=== PATIENT | female | born 1955 | race Caucasian/White ===

== ENCOUNTER 2018-06-08 12:18 | Emergency (ER) | payer OTHER ==
[~2018-06-08] VITALS: Ht 167.6 cm; Wt 72.7 kg
[2018-06-08 12:36] VITALS: Ht 167.6 cm; Wt 72.7 kg
--- NOTE | 2018-06-08 13:00 | ERD ---
ER Documentation Chief Complaint Chief Complaint DIZZINESS HPI The patient is a 63-year-old female, presenting to the ER because of i ntermittent dizziness, right ear pain, right-sided headache for 5 days, seen by a physician who is treating her with antibiotic amoxicillin for right ear infection, last visit was 5 and 2 days ago. She denies syncope, near syncope, neck pain, chest pain, dyspnea, abdominal pain, vomiting, dysuria, diarrhea. She does not smoke/drink Past medical history: Hypertension, hypothyroidism, history of lymphoma treated with chemotherapy Past surgical history: Corneal transplant, partial thyroidectomy ROS All systems reviewed and are negative except as per history of present illness. Medications Home Meds Active Scripts Amoxicillin/Potassium Clav (Amox-Clav 875-125 mg Tablet) 875-125 mg Tab, 1 TAB PO BID for 7 Days, #14 TAB Prov:AMBER ANDERSON MD 06/08/18 Meclizine Hcl* (Antivert*) 12.5 Mg Tab, 25 MG PO Q6H PRN for DIZZINESS, #20 TAB Prov:AMBER ANDERSON MD 06/08/18 Reported Medications Ofloxacin Otic (Ofloxacin Otic) 5 Ml Drops, 10 DROP BOTH EARS DAILY for 7 Days, #1 BOTTLE 06/08/18 Loratadine* (Claritin*) 10 Mg Capsule, 10 MG PO DAILY, CAP 06/08/18 Meclizine Hcl* (Meclizine Hcl*) 25 Mg Tablet, 25 MG PO Q8H PRN for DIZZINESS, TAB 06/08/18 Clopidogrel Bisulfate (Clopidogrel) 75 Mg Tablet, 75 MG PO DAILY, #30 TAB 06/08/18 Levothyroxine Sodium* (Levothyroxine Sodium*) 50 Mcg Tablet, 50 MCG PO BEFORE BREAKFAST, #30 TAB 06/08/18 Lisinopril/Hydrochlorothiazide (Lisinopril-Hctz 10-12.5 mg Tab) 1 Each Tablet, 1 EACH PO DAILY, TAB 06/08/18 Amoxicillin* (Amoxicillin*) 500 Mg Cap, 500 MG PO Q8, #30 CAP 06/08/18 Ibuprofen* (Ibuprofen*) 200 Mg Capsule, 200 MG PO QID PRN for PAIN, CAP 06/08/18 Discontinued Reported Medications Clopidogrel Bisulfate (Clopidogrel) 75 Mg Tablet, 75 MG PO DAILY, #30 TAB 06/08/18 Allergies Allergies: Coded Allergies: No Known Allergy (Unverified , 06/08/18) Physical Exam Vitals Vital Signs Date Temp Pulse Resp B/P (MAP) Pulse Ox O2 O2 Flow FiO2 Time Delivery Rate 06/08/18 70 17 120/77 100 Room Air 16:14 (91) 06/08/18 75 17 109/78 100 Room Air 13:14 (88) 06/08/18 98.3 82 18 127/82 99 12:36 (97) Physical Exam Const: No acute distress. Head: Atraumatic. Eyes: Normal Conjunctiva. ENT: Normal External Ears, Nose and Mouth. R tympanic membrane is erythematous Neck: Full range of motion. No meningismus. Resp: Clear to auscultation bilaterally. Cardio: Regular rate and rhythm. Abd: Soft, non distended, normal bowel sounds, non tender. Skin: No petechiae or rashes. Back: No midline or flank tenderness. Ext: No cyanosis, or edema. Neur: Awake and alert. No focal deficit Psych: Anxious. Result Diagram: 06/08/18 1407 06/08/18 1407 Results 24 hrs Laboratory Tests Test 06/08/18 14:07 White Blood Count 11.5 10^3/ul Red Blood Count 3.78 10^6/ul Hemoglobin 11.0 g/dl Hematocrit 33.1 % Mean Corpuscular Volume 87.6 fl Mean Corpuscular Hemoglobin 29.1 pg Mean Corpuscular Hemoglobin Concent 33.2 g/dl Red Cell Distribution Width 13.2 % Platelet Count 190 10^3/UL Mean Platelet Volume 11.0 fl Immature Granulocytes % 0.300 % Neutrophils % 45.8 % Lymphocytes % 43.0 % Monocytes % 10.5 % Eosinophils % 0.1 % Basophils % 0.3 % Nucleated Red Blood Cells % 0.0 /100WBC Immature Granulocytes # 0.040 10^3/ul Neutrophils # 5.3 10^3/ul Lymphocytes # 4.9 10^3/ul Monocytes # 1.2 10^3/ul Eosinophils # 0.0 10^3/ul Basophils # 0.0 10^3/ul Nucleated Red Blood Cells # 0.0 10^3/ul Prothrombin Time 12.4 Sec Prothrombin Time Ratio 1.0 INR International Normalized Ratio 0.91 Activated Partial Thromboplast Time 25.4 Sec Sodium Level 140 mmol/L Potassium Level 4.4 mmol/L Chloride Level 103 mmol/L Carbon Dioxide Level 24 mmol/L Anion Gap 13 Blood Urea Nitrogen 29 mg/dl Creatinine 1.29 mg/dl Est Glomerular Filtrat Rate mL/min 42 mL/min Glucose Level 77 mg/dl Calcium Level 9.2 mg/dl Troponin I < 0.012 ng/ml Current Medications Medications Dose Sig/Myah Start Time Status Last (Trade) Ordered Route PRN Stop Time Admin Dose Reason Admin Meclizine 25 mg ONCE ONCE 06/08/18 DC 06/08/18 HCl PO 14:30 06/08/18 15:47 (Antivert) 14:31 Procedures/[place] [id number] Radiology Main Line: [phone] DIAGNOSTIC IMAGING REPORT Patient: DELORES PIMENTEL : 1955 Age: 63 Sex: F MR #: [id number] DOS: 06/08/18 1321 Ordering MD: AMBER ANDERSON MD Location: E/R Room/Bed: PROCEDURE: CT Brain without contrast. CLINICAL INDICATION: Syncope. TECHNIQUE: A CT of the brain without contrast was performed utilizing axial sections from the skull base through the vertex. One or more the following does reduction techniques were utilized: Automated exposure control, adjustment of the mA/ or kV according to patient's size, or use of iterative reconstruction technique. Total exam CTDIvol is 39.25 MGy and DLP is 554.95 mGy-cm. DICOM images are available. COMPARISON: None available. FINDINGS: The ventricles and sulci are mildly prominent indicative of volume loss. There is no intracranial hemorrhage, mass effect or midline shift. No abnormal intra- axial or extra-axial fluid collections are seen. The dixon/white matter differentiation is preserved. There are mild foci of hypoattenuation in the white matter, which are nonspecific in etiology but likely reflect chronic small vessel ischemic changes. T The visualized paranasal sinuses are essentially clear. IMPRESSION: 1. No acute intracranial hemorrhage, transcortical infarction or mass effect. 2. Mild chronic small vessel ischemic changes. 3. Mild generalized cerebral volume loss. RPTAT: .Allen Caldera MD, Date Time Electronically viewed and signed by .Allen Caldera MD, on 06/08/2018 13:50 .N/ CC: AMBER ANDERSON MD [phone] EKG: Read by emergency physician Rate/Rhythm: Normal Sinus Rhythm 70 beats/min QRS, ST, T-waves: No ST elevation, no T inversion, LAD Impression: Abnormal EKG MEDICAL MAKING DECISION: The patient is a 63-year-old female, presenting with acute dizziness, most likely related to her right ear infection, was treated wi th Antivert 25 mg p.o. with good response, is stable for outpatient follow-up the differential diagnoses considered include but are not limited to central causes such as cerebellar infarct, cerebellar hemorrhage, cerebellar tumor, acoustic neuroma, peripheral causes such as benign positional vertigo, labyrinthitis, medication, Meniere's disease. Departure Diagnosis: Primary Impression: Dizziness Additional Impressions: Renal insufficiency Anemia Condition: Good Comments He was discharged with Antivert I discussed the findings with the patient. I advised the patient to follow-up with the primary physician in about 2-3 days, sooner if needed and return if any concern. Disclaimer: Inadvertent spelling and grammatical errors are likely due to EHR/dictation software use and do not reflect on the overall quality of patient care. Also, please note that the electronic time recorded on this note does not necessarily reflect the actual time of the patient encounter. AMBER ANDERSON MD Jun 08, 2018 13:00
[2018-06-08] MEDS ORDERED: IBUP-1982 PO (14:07)
[2018-06-08] MEDS ORDERED: AMOX500C2 PO (14:07)
[2018-06-08] MEDS ORDERED: LISI1TAB4 PO (14:08)
[2018-06-08] MEDS ORDERED: LEVO50TA7 PO (14:08)
[2018-06-08] MEDS ORDERED: CLOP75TA27 PO ×2 (14:08→14:09)
[2018-06-08] MEDS ORDERED: MECL-77 PO (14:09)
[2018-06-08] MEDS ORDERED: LORA10CA PO (14:10)
[2018-06-08] MEDS ORDERED: OFLO5DRO7 BOTH EARS (14:10)
[2018-06-08] MEDS ORDERED: MECLIZINE 12.5 MG TAB PO ONE (14:30)
[2018-06-08] MEDS ORDERED: MECL12.574 PO (15:05)
[2018-06-08] MEDS ORDERED: AMOX1TAB10 PO (16:02)
[2018-06-08 16:14] VITALS: BP 120/77; PULSE 70; RESP 17
== END 2018-06-08 16:38 | disposition home or self-care (01) ==
LOC: E/R 12:18
DX: R42 Dizziness and giddiness (principal); N28.9 Disorder of kidney and ureter, unspecified; D64.9 Anemia, unspecified; I10 Essential (primary) hypertension; E03.9 Hypothyroidism, unspecified; Z79.01 Long term (current) use of anticoagulants; Z85.72 Personal history of non-Hodgkin lymphomas
CPT/HCPCS: 36415; 70450; 80048; 84484; 85025; 85610; 85730; 93005; Z7502; Z7610